=== PATIENT | female | born 1930 | race Caucasian/White ===

== ENCOUNTER 2018-01-28 12:53 | Day surgery (SDC) | payer OTHER, MEDICARE ==
[2018-01-09 10:43] LABS: PLATELET COUNT 224 10^3/uL (150-400)
--- NOTE | 2018-01-09 14:21 | CPEKG ---
Heart Rate: 63 RR Interval: 952 P-R Interval: 156 QRSD Interval: 84 QT Interval: 416 QTC Interval: 426 P Davenport: 46 QRS Davenport: -10 T Wave Davenport: 67 EKG Severity - NORMAL ECG - EKG Impression: SINUS RHYTHM Electronically Signed By: Sriram Vallejo 10-Jan-2018 08:23:58
--- NOTE | 2018-01-28 10:12 | PDGENHP ---
History and Physical History and Physical: Assessment and Plan: 1. Genuine stress incontinence, quincy Lomas appears to have persistent stress urinary incontinence. We reviewed all conservative and surgical options. At the end of our discussion she wishes to schedule a retropubic sling placement. Subjective: Patient ID: Cesilia Sood is a 87 y.o. female who [facility] to [facility] for urinary incontinence. DONNELL Lomas is an 87-year-old female who underwent a sacral colpopexy and trans- obturator sling at the end of August. She developed some postoperative urinary incontinence. It has been difficult to differentiate whether this is some persistent stress incontinence or overactive bladder. Her last exam I could not reproduce her incontinence. She was treated for urinary tract infection and later started on Myrbetriq. Unfortunately this provided minimal benefit. She presents for further evaluation. PastMedicalHistory Past Medical History: Diagnosis Date Allergy to pollen Basal cell carcinoma GERD (gastroesophageal reflux disease) High cholesterol Hypertension Lung cancer (HC code) Melanoma (HC code) Thyroid disease Urinary tract infection Varicella PastSurgicalHistory Past Surgical History: Procedure Laterality Date APPENDECTOMY BELPHAROPTOSIS REPAIR CHOLECYSTECTOMY 1963 CYSTOCELE REPAIR 08/2017 CYSTOSCOPY 08/2017 FOOT SURGERY HYSTERECTOMY KNEE SURGERY LUNG REMOVAL, PARTIAL 2004 PERINEORRHAPHY 08/2017 RECTOCELE REPAIR 08/2017 SACRAL COLPOPEXY WITH MESH 08/2017 LAP TOT SLING 08/2017 TOTAL HIP ARTHROPLASTY Bilateral bilat VARICOSE VEIN SURGERY CURRENT MEDICATIONS: Current Outpatient Prescriptions Medication Sig amLODIPine (NORVASC) 5 mg tablet Take 5 mg by mouth daily. aspirin 81 mg chewable tablet Take 81 mg by mouth daily. cholecalciferol (VITAMIN D3) 1,000 unit capsule Take 5,000 Units by mouth daily. docusate sodium (COLACE) 100 mg capsule Take 100 mg by mouth 2 times daily as needed for Constipation. docusate sodium (COLACE) 50 mg/5 mL ORAL liquid Take 250 mg by mouth. GLUCOSAMINE/MSM/CSA/JOANN/ZCP818 ([id number]-[id number]-[id number]-JOANN-115HC PO) Take 2 tablets by mouth daily. hydroCHLOROthiazide (MICROZIDE) 12.5 mg capsule Take 12.5 mg by mouth daily. losartan (COZAAR) 100 mg tablet Take 100 mg by mouth daily. omeprazole (PRILOSEC) 20 mg capsule Take 20 mg by mouth daily. omeprazole (PRILOSEC) 20 mg capsule TAKE 1 CAPSULE BY MOUTH EVERY MORNING BEFORE BREAKFAST oxybutynin (DITROPAN) 5 mg tablet Take 5 mg by mouth daily in the morning. polyethylene glycol (GLYCOLAX) powder Take 8.5-17 g by mouth daily as needed for constipation. polyethylene glycol (GLYCOLAX) powder USING MEASURING CAP MIX 17GM IN WATER AND DRINK EVERY EVENING pravastatin (PRAVACHOL) 20 mg tablet Take 20 mg by mouth daily. SYNTHROID 125 mcg tablet Take 125 mcg by mouth daily. VIT A/VIT C/VIT E/ZINC/COPPER (ICAPS AREDS PO) Take 1 tablet by mouth 2 times daily. No current facility-administered medications for this visit. ALLERGIES: Codeine; Lisinopril; and Sulfamethoxazole-trimethoprim I have reviewed, verified and agree with the past medical, surgical, , family, social and ROS history as documented by the RN today. Objective: Vital Signs: Visit Vitals BP 150/70 Pulse 64 Temp 36.1 C (97 F) Ht 1.727 m (5' 8") Wt 80.7 kg (178 lb) LMP (LMP Unknown) SpO2 96% BMI 27.06 kg/m Physical Exam Gen: This is an alert, well developed woman in no distress. Neuro: She moves all extremities. Psych: She is appropriate, oriented, with normal affect. Neck: No thyroid enlargement, adenopathy, or tenderness. Lungs: Clear to ascultation, no wheezes or rales. Heart: Regular rate and rhythm without obvious murmurs. Abdomen: Soft, non-tender, without guarding, rebound, or masses. Extremities: No edema or cyanosis. Pelvic: Normal external genitalia. Non-gaping introitus, vagina without discharge, adequately estrogenized, no significant prolapse. The urethra has slightly reduced mobility. She does leak with strong coughing. DATA: I have reviewed the pertinent medical records. TIME/COMMUNICATION: I personally spent a total of 25 minutes. Of that 15 minutes was counseling/ coordination of patient's care. See my note above for details. Chaim Benson MD Board Certified Female Pelvic Medicine and Reconstructive Surgery Director of Minimally Invasive Gynecologic Surgery, [facility] Surgeon in Minimally Invasive Gynecologic Surgery [facility] Surgeon in Robotic Surgery
[2018-01-28] MEDS ORDERED: ceFAZolin 2 GM/SWFI 2 GM/20 ML SYR IVP ONE (12:54)
[2018-01-28] MEDS ORDERED: LIDOCAINE 1% 2 ML INJ ID PRN (12:55)
[2018-01-28] MEDS ORDERED: LR 1,000 ML IV ONE (12:55)
--- NOTE | 2018-01-28 13:52 | POSTOPPROG ---
Post Op Note Date of Operation: 01/28/18 Surgeon: Chaim Benson Manager Assisted Living: None Anesthesia: GET(General Endotracheal) Pre-op Diagnosis: Stress incontinence Post-op Diagnosis: same Procedure: retropubic sling Findings: no evidence of bladder or urethral injury Inf/Abcess present in the surg proc area at time of surgery?: No EBL: Minimal Complications: None
--- NOTE | 2018-01-28 14:32 | PDANEPAE ---
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 ANE Past Medical History - Cardiovascular History Hx Hypertension: Yes Hx Arrhythmias: No Hx Chest Pain: No Hx Coronary Artery / Peripheral Vascular Disease: No Hx CHF / Valvular Disease: No Hx Palpitations: No - Pulmonary History Hx COPD: No Hx Asthma/Reactive Airway Disease: No Hx Recent Upper Respiratory Infection: No Hx Oxygen in Use at Home: No Hx Sleep Apnea: No Sleep Apnea Screening Result - Last Documented: Negative - Neurologic History Hx Cerebrovascular Accident: No Hx Seizures: No Hx Dementia: No - Endocrine History Hx Diabetes: No Hypothyroid: Yes Hyperthyroid: No Obesity: no - Renal History Hx Renal Disorders: No - Liver History Hx Hepatic Disorders: No - Neurological & Psychiatric Hx Hx Neurological and Psychiatric Disorders: Yes Neurological / Psychiatric History Comment: neuropthy in toes - Cancer History Hx Cancer: Yes Cancer History Comment: lung cancer x2 - Congenital Disorder History Hx Congenital Disorders: No - GI History Hx Gastrointestinal Disorders: Yes Gastrointestinal History Comment: reflux - Other Health History Other Health History: macular degeneration - Chronic Pain History Chronic Pain: No - Surgical History Prior Surgeries: right middle lobectomy 2004. 3 mths ago same procedure ANE Review of Systems Review of systems is: negative Review of Systems: - Exercise capacity Exercise capacity: <4 METS METS (RN): 3 METS ANE Patient History - Allergies Allergies/Adverse Reactions: lisinopril Allergy (Intermediate, Verified 01/01/18 11:28) Other-Enter Comments codeine Allergy (Mild, Verified 01/01/18 11:28) Other-Enter Comments sulfamethoxazole [From Bactrim] Allergy (Unknown, Verified 01/01/18 11:28) trimethoprim [From Bactrim] Allergy (Unknown, Verified 01/01/18 11:28) - Home Medications Home medications: home medication list seen and reviewed Home Medications: Amlodipine Besylate 01/01/18 [Last Taken 01/28/18 06:00] Aspirin 81mg (*) 01/01/18 [Last Taken 01/21/18] Cholecalciferol (Vitamin D3) 01/01/18 [Last Taken 01/21/18] Hydrochlorothiazide 01/01/18 [Last Taken 01/27/18 08:00] Losartan Potassium 01/01/18 [Last Taken 01/28/18 06:00] Omeprazole 01/01/18 [Last Taken 01/28/18 06:00] Osteo Bi-Flex Tablet 01/01/18 [Last Taken 01/27/18 22:00] Oxybutynin 01/01/18 [Last Taken 01/27/18 22:00] Pravastatin Sodium 01/01/18 [Last Taken 01/27/18 22:00] Stool Softener 01/01/18 [Last Taken 01/27/18 22:00] Synthroid 01/01/18 [Last Taken 01/28/18 06:00] - NPO status NPO Status: no food or drink >8 hours NPO Since - Liquids (Date): 01/28/18 NPO Since - Liquids (Time): 11:30 NPO Since - Solids (Date): 01/27/18 NPO Since - Solids (Time): 03:00 - Anes Hx Anes Hx: no prior problems - Smoking Hx Smoking Status: Never smoked Marijuana use: No - Alcohol Use Alcohol Use: Rarely - Family Anes Hx Family Anes Hx: neg - N/A Family Hx Anesthesia Complications: none ANE Labs/Vital Signs - Labs Result Diagrams: 01/09/18 09:46 01/09/18 10:38 - Vital Signs Vital Signs: reviewed preoperatively; see RN documention for details Blood Pressure: 177/69 Heart Rate: 69 Respiratory Rate: 16 O2 Sat (%): 95 Height: 172.72 cm Weight: 79.379 kg ANE Physical Exam - Airway Neck exam: FROM Mallampati Score: Class 3 Mouth exam: dentures, abnormal chin - Pulmonary Pulmonary: no respiratory distress - Cardiovascular Cardiovascular: regular rate and rhythym - ASA Status ASA Status: III ANE Anesthesia Plan Anesthesia Plan: general endotracheal anesthesia, GA w LMA Total IV Anesthesia: No
[2018-01-28] MEDS ORDERED: fentaNYL 100 MCG/2 ML INJ ONE (15:11)
[2018-01-28] MEDS ORDERED: PROPOFOL 200 MG/20 ML VIAL ONE (15:11)
[2018-01-28] MEDS ORDERED: ONDANSETRON 4 MG/2 ML VIAL ONE (15:13)
[2018-01-28] MEDS ORDERED: DEXAMETHASONE 4 MG/ML VIAL ONE (15:13)
[2018-01-28] MEDS ORDERED: ONDANSETRON 4 MG/2 ML VIAL IVP PRN (15:37)
[2018-01-28] MEDS ORDERED: HYDROCODONE/APAP 5/325 TAB PO PRN (15:37)
[2018-01-28] MEDS ORDERED: epHEDrine SULFATE 10 MG/ML SYR IVP PRN (15:37)
[2018-01-28] MEDS ORDERED: fentaNYL 100 MCG/2 ML INJ IVP PRN (15:37)
[2018-01-28] MEDS ORDERED: LR 500 ML IV PRN (15:37)
[2018-01-28] MEDS ORDERED: PHENYLEPHRINE HCL 100 MCG/ML SYR IVP PRN (15:37)
[2018-01-28] MEDS ORDERED: NALOXONE HCL 0.4 MG/ML INJ IVP PRN (15:37)
[2018-01-28] MEDS ORDERED: ROCURONIUM 50 MG/5 ML VIAL ONE (16:04)
[2018-01-28] MEDS ORDERED: SUGAMMADEX SODIUM 200 MG/2 ML VIAL IVP ONE (16:04)
--- NOTE | 2018-01-28 16:36 | GOP ---
[f rep st] OPERATIVE REPORT DATE OF OPERATION: 01/28/2018 SURGEON: Chaim Benson MD ELEVATOR SUPERVISOR: None. ANESTHESIA: General. PREOPERATIVE DIAGNOSIS: Stress urinary incontinence. POSTOPERATIVE DIAGNOSIS: Stress urinary incontinence. PROCEDURE PERFORMED: 1. Retropubic sling. 2. Cystoscopy. FINDINGS: SPECIMENS: None. ESTIMATED BLOOD LOSS: Scant. DESCRIPTION OF PROCEDURE: The patient was taken to the operating room where she was identified. Gen eral anesthesia was administered and found to be adequate. She was placed in the lithotomy position and prepared and draped in normal sterile fashion. A Moralez catheter was placed in her bladder. A mid urethral incision was made with a scalpel. Tunnels were created bilaterally around the urethra toward the space of Retzius. The retropubic trocar with the sling attached was advanced through the left tunnel, redirected around the symphysis pubis and out through a suprapubic stab incision. The exact same procedure was performed on the patient's right side. Cystoscopy was then performed. No e vidence of bladder nor urethral injury was seen. No mesh nor no pathology was seen within the bladder nor urethra. The sling was then adjusted to allow a small mid urethral gap. The vagina l epithelium was closed with 2-0 Vicryl, skin with 4-0 Monocryl. Anesthesia was reversed, and the pa tient taken to the PACU awake, in stable condition. COMPLICATIONS: None. DISPOSITION: Stable to PACU. /[id number]/MODL
[2018-01-28 16:47] VITALS: RESP 20
[2018-01-28 17:29] VITALS: PULSE 58
--- NOTE | 2018-01-28 17:46 | POSTANESTH ---
Post Anesthetic Evaluation Cardiovascular Status: Similar to Pre-Op Cond, Tx Hyper/Hypo-tension (Patient hypertensive, but has not taken her daily oral anti-hypertensives. Patient completely asymptomatic, not in pain and no evidence of end organ dysfunction.) Respiratory Status: Normal, Stable, Similar to Pre-op Cond. Level of Consciousness/Mental Status: Can Participate in Eval, Alert and Oriented Pain Control: Adequate, Prn Tx Ordered Nausea/Vomiting Control: Adequate, Prn Tx Ordered Complications Possibly Related to Anesthesia: None Noted
[2018-01-28 17:53] VITALS: BP 198/78
[2018-01-28 18:13] VITALS: O2SAT 92
[2018-01-28 18:24] VITALS: TEMP 97.3
== END 2018-01-28 18:15 | disposition home or self-care (01) ==
LOC: FSGY 12:53
PROVIDERS: ATTEND Obstetrics & Gynecology
PROC: 0TUC0JZ Supplement Bladder Neck with Synthetic Substitute, Open Approach (ICD-10-PCS; principal; 2018-01-28 14:30)
DX: N39.3 Stress incontinence (female) (male) (principal); K21.9 Gastro-esophageal reflux disease without esophagitis; E78.5 Hyperlipidemia, unspecified; I10 Essential (primary) hypertension; E03.9 Hypothyroidism, unspecified; Z85.820 Personal history of malignant melanoma of skin; Z85.118 Personal history of other malignant neoplasm of bronchus and lung; Z87.440 Personal history of urinary (tract) infections; Z96.643 Presence of artificial hip joint, bilateral; Z90.2 Acquired absence of lung [part of]
CPT/HCPCS: C1771; J0690; J1100; J2405; J2704; J3010